=== PATIENT | male | born 1955 | race Caucasian/White ===

== ENCOUNTER 2023-06-19 06:11 | Day surgery (SDC) | payer BC, SELFPAY ==
[2023-06-08 09:39] VITALS: BMI 28.0
[2023-06-08 10:45] LABS: Blood Urea Nitrogen 12 mg/dl (9-20); Calcium 9.7 mg/dl (8.4-10.2); Carbon Dioxide 27 mmol/L (22-30); Chloride 105 mmol/L (98-107); Estimated Creatinine Clearance 84 ml/min; Glucose 97 mg/dl (70-99); Potassium 3.9 mmol/L (3.5-5.1); Sodium 137 mmol/L (135-145); eGFR > 60.00
[2023-06-08 10:49] LABS: Hematocrit 43.9 % (39.0-52.0); Mean Corp Hgb Conc. 34.2 g/dL (33.0-37.0); Mean Corpuscular Hgb 30.2 pg (27.0-31.0); Mean Corpuscular Volume 88.3 fL (80.0-94.0); Mean Platelet Volume 9.6 fL (7.4-10.4); Platelet Count 190 10^3/uL (130-400); Red Blood Cell Count 4.97 10^6/uL (4.70-6.10); Red Cell Dist. Width 12.1 % (11.5-14.5); White Blood Cell Count 5.9 10^3/uL (4.8-10.8)
[2023-06-19] VITALS (9 sets, daily range): BP systolic 113–156; BP diastolic 67–89; BMI 28.0
[2023-06-19] MEDS: NORMOSOL-R 1000 IV (06:43)
[2023-06-19] MEDS: TYLENOL 1000 MG PO (06:43)
--- NOTE | 2023-06-19 06:57 | HP.FOC2 ---
Focused History & Physical
Chief Complaint
HPI:
Chief Complaint: Right inguinal hernia
HPI / Indication for Planned Procedure: Patient is a 67-year-old male who underwent open right inguinal herniorrhaphy with possible mesh in 2010. Over the past few years he has noticed a mild recurrent swelling in the right inguinal region.
Physical examination confirmed the presence of a recurrent hernia. He has an awareness of the hernia being present and occasional pulling/discomfort. He presents today for scheduled operative correction.
Relevant Past Medical History: Other (Hyperlipidemia, asthma, BPH, palpitations, dyspnea)
Relevant Social History: Negative
Relevant Family History: Negative
Relevant Past Surgical History: Positive for (Tonsils, right inguinal herniorrhaphy, wisdom teeth extraction)
Review of Systems
Review of Pertinent Systems: All Systems Negative
Medication
See Medication form for detailed medications: Yes
Medication List (including Herbals & OTC):
Fish Oil 2 cap PO DAILY 06/14/23
Probiotic 1 cap PO DAILY 06/14/23
Vitamin K Complex 1 tab PO DAILY 06/14/23
albuterol sulfate 90 mcg/actuation aerosol inhaler 2 puff inhalation PRN PRN SOB 06/14/23
alfuzosin 10 mg tablet,extended release 24 hr (Uroxatral) 10 mg PO HS 06/14/23
alprazolam 0.5 mg tablet (Xanax) 0.5 mg PO PRN PRN Anxiety, Insomnia 06/14/23
atorvastatin 20 mg tablet (Lipitor) 20 mg PO DAILY 06/14/23
azelastine 137 mcg-fluticasone 50 mcg/spray nasal spray (Dymista) 1 spray intranasal BID 06/14/23
coQ10 (ubiquinol) 100 mg capsule 100 mg PO BID 06/14/23
finasteride 5 mg tablet 5 mg PO HS 06/14/23
melatonin 10 mg tablet,extended release 10 mg PO HS PRN Insomnia 06/14/23
montelukast 10 mg tablet 10 mg PO HS 06/14/23
multivitamin 1 tab PO DAILY 06/14/23
saw palm 160 mg-vit E 100 unit-selen 100 khn-ikls-xuanaz-pygeum tablet (Prostate Health) 1 tab PO BID 06/14/23
valacyclovir 500 mg tablet (Valtrex) 500 mg PO BID PRN Herpatic Outbreak 06/14/23
vitamin E 400 unit tablet 400 unit PO DAILY 06/14/23
Trans-Resveratrol 1,000 mg PO DAILY 06/19/23
Medications Reviewed: Yes
Allergies and Reactions
Patient has Allergies: No
Noted Allergies and Reactions:
Allergy/AdvReac Type Severity Reaction Status Date / Time
No Known Allergies Allergy Verified 06/19/23 06:36
Pertinent Physical Exam
All Other Systems: Negative
Head/Neck: Normal
Lungs: Normal
Heart: Normal
Abdomen: Other (Reducible, recurrent right inguinal hernia)
Extremities: Normal
Neurological: Normal
Diagnosis / Assessment
67-year-old male presented for scheduled operative correction recurrent right inguinal hernia
Plan / Procedure
Robotic assisted laparoscopic repair recurrent right inguinal hernia with mesh
Anesthesia/Sedation to be done by Anesthesia Provider: Yes
--- NOTE | 2023-06-19 07:11 | W.SUR.PREOP ---
Pre-Operative Surgical Note
-
I have examined this patient prior to the performance of the scheduled procedure.
The patient's condition is unchanged from the time of the current History and
Physical and the patient is able to undergo the scheduled procedure.
--- NOTE | 2023-06-19 08:43 | W.IMMPOSTOP ---
Addendum entered and electronically signed by Topher Wilson MD 06/19/23 08:50:
#[id number]
Original Note:
Surgical Immed Post Op Note
-
Primary Surgeon: Steve
Assisting Surgeon: Santiago Gupta
Pre-op Diagnosis: recurrent RIH
Post-op Diagnosis: recurrent RIH
Procedure Performed: RAL repair RIH with mesh; 3dmax lg mid
Anesthesia Type: GETA + 0.25% Marcaine
Specimen / Cultures: none
Estimated Blood Loss: 6mL
Complications: none immediate
Operative Findings: recurrent right inguinal hernia - direct; no lipoma. 3d max large mid wt mesh repair.
== END 2023-06-19 10:40 | disposition home or self-care (01) ==
LOC: SDS 06:11
PROVIDERS: ATTENDING PHYSICIAN Surgery; OTHER PHYSICIAN Internal Medicine Cardiovascular Disease
DX: K40.91 Unilateral inguinal hernia, without obstruction or gangrene, recurrent (principal)
CPT/HCPCS: 49651; 36415; 80048; 85027; 93005; C1781